=== PATIENT | male | born 1995 | race Caucasian/White ===

== ENCOUNTER 2018-10-15 12:12 | Emergency (ER) | payer OTHER ==
[~2018-10-15] VITALS: Ht 190.5 cm; Wt 95.5 kg
[2018-10-15] MEDS ORDERED: IBUP-1022 PO (13:12)
[2018-10-15] MEDS ORDERED: LIDO1SOL7 PO (13:12)
[2018-10-15] MEDS ORDERED: LIDOCAINE VISCOUS 2% SOLN 15ML UDC SS ONE (13:15)
[2018-10-15 13:22] VITALS: BP 114/74
== END 2018-10-15 13:24 | disposition home or self-care (01) ==
LOC: M ED 12:12
DX: B08.5 Enteroviral vesicular pharyngitis (principal); Z72.0 Tobacco use; Z88.5 Allergy status to narcotic agent